=== PATIENT | female | born 1985 | race Caucasian/White ===

== ENCOUNTER 2017-04-25 16:01 | Inpatient (IN) ==
[2017-04-25] MEDS ORDERED: MORPHINE 2 MG/1 ML SYRINGE IV STA (17:17)
[2017-04-25] MEDS ORDERED: ONDANSETRON 4 MG/2 ML VIAL IV STA (17:17)
[2017-04-25] MEDS ORDERED: ONDANSETRON 4 MG/2 ML VIAL ONE (17:29)
[2017-04-25] MEDS ORDERED: MORPHINE 2 MG/1 ML SYRINGE ONE (17:29)
[2017-04-25 17:34] LABS: Basophils # 0.1 10*3/uL (0.0-0.2); Basophils % 0.7 % (0.0-0.8); Eosinophils # 0.3 10*3/uL (0.0-0.87); Eosinophils % 3.8 % (0.00-10.9); Hematocrit 42.2 VOL% (35.7-47.0); Hemoglobin 13.7 GM/DL (12.0-16.0); Immature Granulocytes % 0.2 %; Immature Granulocytes Absolute 0.02 #; Lymphocytes % 34.6 % (21.3-54.2); Mean Corpuscular HGB Conc 32.5 GM/DL (32-36); Mean Corpuscular Hemoglobin 25 PG (27-34); Mean Corpuscular Volume 78.1 FL (87-102); Mean Platelet Volume 10.8 FL (9.6-12.0); Monocytes # 0.7 10*3/uL (0.11-0.8); Monocytes % 7.9 % (1.7-12.7); Neutrophils # 4.6 10*3/uL (1.4-7.4); Neutrophils % 52.8 % (38.7-73.9); Platelet Count 232 T/CUMM (130-400); Red Cell Distribution Width 14.2 % (9.3-17.3); White Blood Count 8.8 T/CUMM (4-12)
[2017-04-25 17:55] LABS: Calcium 9.4 MG/DL (8.5-10.1); Osmolality,Calculated 281.3 MOS/KG (273-304); Potassium 3.9 MMOL/L (3.5-5.1)
[2017-04-25] MEDS ORDERED: ONDANSETRON 4 MG/2 ML VIAL IV PRN (18:46)
[2017-04-25] MEDS ORDERED: ACETAMINOPHEN 325 MG TABLET PO PRN (18:46)
[2017-04-25] MEDS: KETOROLAC 15 MG/1 ML VIAL IV PRN (21:00)
[2017-04-25] MEDS: LACTATED RINGERS 1,000 ML IV SCH (21:04)
[2017-04-26] MEDS: LACTATED RINGERS 1,000 ML IV SCH ×4 (04:21→23:38)
[2017-04-26] MEDS: MORPHINE 2 MG/1 ML SYRINGE IV PRN ×2 (04:57→08:50)
[2017-04-26] MEDS ORDERED: cefOXitin 2,000 MG in SYRINGE 1 EACH IV ONE (08:58)
[2017-04-26] MEDS: PANTOPRAZOLE 40 MG TABLET PO SCH (08:59)
[2017-04-26] MEDS: KETOROLAC 15 MG/1 ML VIAL IV PRN (12:53)
[2017-04-26] MEDS ORDERED: SEVOFLURANE 1 UNIT/15 MINUTE INH ONE (15:24)
[2017-04-26] MEDS ORDERED: MIDAZOLAM 2 MG/2 ML VIAL ONE (15:24)
[2017-04-26] MEDS ORDERED: PROPOFOL 200 MG/20 ML VIAL IV ONE (15:24)
[2017-04-26] MEDS ORDERED: fentaNYL 100 MCG/2 ML VIAL ONE (15:25)
[2017-04-26] MEDS ORDERED: ONDANSETRON 4 MG/2 ML VIAL ONE (15:25)
[2017-04-26] MEDS ORDERED: GLYCOPYRROLATE 0.4 MG/2 ML VIAL ONE (15:25)
[2017-04-26] MEDS ORDERED: KETOROLAC 30 MG/1 ML VIAL ONE (15:25)
[2017-04-26] MEDS ORDERED: HYDROmorphone 2 MG/1 ML VIAL ONE (15:34)
[2017-04-26] MEDS: HYDROmorphone 2 MG/1 ML VIAL IV PRN ×4 (15:35→15:50)
[2017-04-26] MEDS: GABAPENTIN 300 MG CAPSULE PO SCH ×2 (18:02→20:44)
[2017-04-27] MEDS: PANTOPRAZOLE 40 MG TABLET PO SCH (11:25)
[2017-04-27] MEDS: GABAPENTIN 300 MG CAPSULE PO SCH (11:26)
[2017-04-27] MEDS: LACTATED RINGERS 1,000 ML IV SCH (11:27)
[2017-04-27 11:36] VITALS: BP 105/66
== END 2017-04-27 15:08 | disposition home or self-care (01) | DRG 750 ==
LOC: N.ED 16:01 → N.EDINP 18:46 → N.3E 19:33
PROVIDERS: ADMIT Surgery; ATTEND Surgery

== ENCOUNTER 2018-01-26 11:52 | Inpatient (IN) ==
[2018-01-26] MEDS ORDERED: SODIUM CHLORIDE 0.9% 1,000 ML IV STA (12:28)
[2018-01-26 12:32] LABS: Basophils # 0.1 10*3/uL (0.0-0.2); Basophils % 0.3 % (0.0-0.8); Eosinophils % 0.1 % (0.00-10.9); Hematocrit 40.2 VOL% (35.7-47.0); Hemoglobin 12.9 GM/DL (12.0-16.0); Immature Granulocytes % 0.4 %; Immature Granulocytes Absolute 0.07 #; Lymphocytes # 0.6 10*3/uL (1.4-4.0); Lymphocytes % 3.3 % (21.3-54.2); Mean Corpuscular HGB Conc 32.1 GM/DL (32-36); Mean Corpuscular Hemoglobin 25 PG (27-34); Mean Corpuscular Volume 78.1 FL (87-102); Mean Platelet Volume 11.7 FL (9.6-12.0); Monocytes # 0.9 10*3/uL (0.11-0.8); Monocytes % 5.1 % (1.7-12.7); Neutrophils # 16.3 10*3/uL (1.4-7.4); Neutrophils % 90.8 % (38.7-73.9); Platelet Count 199 T/CUMM (130-400); Red Blood Count 5.15 MC/CUMM (3.8-5.5); Red Cell Distribution Width 14.6 % (9.3-17.3); White Blood Count 17.9 T/CUMM (4-12)
[2018-01-26 12:39] LABS: Apearance,Urine Slightly Hazy (Clear); Bilirubin,Urine Negative (Negative); Blood, Urine Large mg/dL (Negative); Glucose,Urine (UA) Negative (Negative); Ketones,Urine 20 mg/dL (Negative); Mucus,Urine Few /LPF (Occasional); Nitrite,Urine Negative (Negative); Protein,Urine Negative; RBC,Urine 2 /HPF (0-4); Squamous Epithelial Cell,Urine Occasional /HPF (0-10); Urine Color Yellow (Yellow); Urine Specific Gravity 1.016 (1.001-1.035); Urine Urobilinogen < 2.0 EU/DL (0.2-1.0); WBC,Urine 34 /HPF (0-6)
[2018-01-26 12:52] LABS: Albumin 3.7 G/DL (3.4-5.0); Bilirubin,Total 0.7 MG/DL (0.2-1.0); Calcium 8.9 MG/DL (8.5-10.1); Osmolality,Calculated 274.7 MOS/KG (273-304); Potassium 4.1 MMOL/L (3.5-5.1); Total Protein 7.4 G/DL (6.4-8.3)
[2018-01-26] MEDS ORDERED: MORPHINE 4 MG/1 ML VIAL IV STA (12:53)
[2018-01-26] MEDS ORDERED: ONDANSETRON 4 MG/2 ML VIAL IV STA (12:53)
[2018-01-26] MEDS ORDERED: ACETAMINOPHEN 500 MG TABLET PO STA (12:53)
[2018-01-26] MEDS ORDERED: ONDANSETRON 4 MG/2 ML VIAL ONE (12:57)
[2018-01-26] MEDS ORDERED: MORPHINE 4 MG/1 ML VIAL ONE (12:57)
[2018-01-26] MEDS ORDERED: ACETAMINOPHEN 500 MG TABLET ONE (12:57)
[2018-01-26 15:10] LABS: Band Neutrophils 5 % (0-10); Lymphocytes 2 % (20-55); Segmented Neutrophils 91 % (50-85); Total Cells Counted 100
[2018-01-26 15:11] LABS: Platelet Estimate Normal; Polychromasia Slight
[2018-01-26] MEDS ORDERED: SODIUM CHLORIDE 0.9% 2,100 ML IV ONE (16:18)
[2018-01-26] MEDS ORDERED: AZITHROMYCIN INJ 500 MG in SODIUM CHLORIDE 0.9% 250 ML IV SCH (16:30)
[2018-01-26] MEDS: SODIUM CHLORIDE 0.9% 1,000 ML IV SCH (18:16)
[2018-01-26] MEDS: MORPHINE 4 MG/1 ML VIAL IV PRN (18:22)
[2018-01-26] MEDS: cefTRIAXone 1,000 MG in SYRINGE 1 EACH IV SCH (18:26)
[2018-01-27] MEDS: SODIUM CHLORIDE 0.9% 1,000 ML IV SCH ×3 (04:26→21:30)
[2018-01-27 05:23] LABS: Basophils # 0.1 10*3/uL (0.0-0.2); Basophils % 0.4 % (0.0-0.8); Eosinophils # 0.2 10*3/uL (0.0-0.87); Eosinophils % 1.2 % (0.00-10.9); Hematocrit 34.5 VOL% (35.7-47.0); Hemoglobin 10.9 GM/DL (12.0-16.0); Immature Granulocytes % 0.5 %; Immature Granulocytes Absolute 0.07 #; Lymphocytes % 13.6 % (21.3-54.2); Mean Corpuscular HGB Conc 31.6 GM/DL (32-36); Mean Corpuscular Hemoglobin 25 PG (27-34); Mean Corpuscular Volume 78.9 FL (87-102); Mean Platelet Volume 12.1 FL (9.6-12.0); Monocytes # 1.2 10*3/uL (0.11-0.8); Monocytes % 8.2 % (1.7-12.7); Neutrophils % 76.1 % (38.7-73.9); Platelet Count 185 T/CUMM (130-400); Red Blood Count 4.37 MC/CUMM (3.8-5.5); Red Cell Distribution Width 14.6 % (9.3-17.3); White Blood Count 14.4 T/CUMM (4-12)
[2018-01-27 05:57] LABS: Albumin 3.1 G/DL (3.4-5.0); Bilirubin,Total 0.7 MG/DL (0.2-1.0); Osmolality,Calculated 278.3 MOS/KG (273-304); Potassium 3.9 MMOL/L (3.5-5.1); Total Protein 6.2 G/DL (6.4-8.3)
[2018-01-27] MEDS: PHENOL 1.4% THROAT SPRAY 177 ML BOTTLE PO PRN ×3 (06:32→12:12)
[2018-01-27] MEDS: KETOROLAC 15 MG/1 ML VIAL IV PRN ×2 (08:24→16:17)
[2018-01-27] MEDS: NICOTINE 7 MG/24 HR PATCH TRANSDERM SCH (08:27)
[2018-01-27] MEDS: MORPHINE 4 MG/1 ML VIAL IV PRN (12:10)
[2018-01-27] MEDS: cefTRIAXone 1,000 MG in SYRINGE 1 EACH IV SCH (21:07)
[2018-01-27] MEDS: ONDANSETRON 4 MG/2 ML VIAL IV PRN (23:44)
[2018-01-28] MEDS: SODIUM CHLORIDE 0.9% 1,000 ML IV SCH (05:42)
[2018-01-28 06:42] LABS: Basophils % 0.6 % (0.0-0.8); Eosinophils # 0.4 10*3/uL (0.0-0.87); Eosinophils % 6.1 % (0.00-10.9); Hematocrit 34.1 VOL% (35.7-47.0); Hemoglobin 10.8 GM/DL (12.0-16.0); Immature Granulocytes % 0.3 %; Immature Granulocytes Absolute 0.02 #; Lymphocytes # 2.7 10*3/uL (1.4-4.0); Lymphocytes % 38.9 % (21.3-54.2); Mean Corpuscular HGB Conc 31.7 GM/DL (32-36); Mean Corpuscular Hemoglobin 25 PG (27-34); Mean Corpuscular Volume 78.8 FL (87-102); Mean Platelet Volume 12.2 FL (9.6-12.0); Monocytes # 0.7 10*3/uL (0.11-0.8); Monocytes % 9.9 % (1.7-12.7); Neutrophils % 44.2 % (38.7-73.9); Platelet Count 173 T/CUMM (130-400); Red Blood Count 4.33 MC/CUMM (3.8-5.5); Red Cell Distribution Width 14.8 % (9.3-17.3); White Blood Count 6.8 T/CUMM (4-12)
[2018-01-28 07:21] LABS: Albumin 2.6 G/DL (3.4-5.0); Bilirubin,Total 0.4 MG/DL (0.2-1.0); Calcium 7.9 MG/DL (8.5-10.1); Potassium 4.6 MMOL/L (3.5-5.1); Total Protein 5.8 G/DL (6.4-8.3)
[2018-01-28] MEDS: ONDANSETRON 4 MG/2 ML VIAL IV PRN ×2 (08:08→11:47)
[2018-01-28] MEDS: NICOTINE 7 MG/24 HR PATCH TRANSDERM SCH (08:09)
[2018-01-28 16:15] VITALS: BP 110/58
== END 2018-01-28 16:58 | disposition home or self-care (01) | DRG 690 ==
LOC: N.ED 11:52 → N.EDINP 16:19 → SUATTDRO 16:19 → N.2E 17:45
PROVIDERS: ADMIT Phlebology; ATTEND Internal Medicine